=== PATIENT | male | born 1995 | race African-American/Black ===

== ENCOUNTER 2017-01-13 17:25 | Emergency (ER) | payer OTHER ==
[~2017-01-13 17:25] MED LIST: FLEXERIL10 MG PO; MOBIC PO; NO MEDICATIONS; VOLTAREN75 MG PO
== END 2017-01-13 17:59 | disposition home or self-care (01) ==
LOC: SED 17:25
DX: T22.112A Burn of first degree of left forearm, initial encounter (principal); S01.511A Laceration without foreign body of lip, initial encounter; F17.210 Nicotine dependence, cigarettes, uncomplicated; X19.XXXA Contact with other heat and hot substances, initial encounter
CPT/HCPCS: 12011; 90471; 90715; 99283

== ENCOUNTER 2017-01-14 10:15 | Emergency (ER) | payer OTHER ==
--- NOTE | ~2017-01-14 | CR126 ---
[facility] A Service of [facility] & [facility] / [facility] RADIOLOGY TEXT RESULTS PATIENT: YVONNE OBRIEN JR LOCATION: SED : [birth year] UNIT #: [id number] AGE: [address]: Teresa Finn SEX: M ORDER DR: [id number] [address] [address] [id number] MR#: [id number] Acc #: [id number] NAME: YVONNE OBRIEN JR : 1995 SEX: M STUDY DATE/TIME: 01/14/2017 10:12 UNIT: SED ROOM: STUDY DESCRIPTION: CR Foot Complete Min 3 View Lt Attending Physician: Teresa Finn Pa-C Ordering Physician: Teresa Finn Pa-C Primary Care Physician: Isabel Morton M.D. MEDICAL IMAGING REPORT This report is preliminary unless electronic signature is present. EXAM Left foot, 3 views, 01/14/2017, 1012 hours. CLINICAL HISTORY 21-year-old man who dropped a speaker on his left foot yesterday, striking great toe at girlfriend's house. Pain in first toe. COMPARISON None FINDINGS AP, lateral, and oblique views demonstrate overall normal bone density. There is no fracture, dislocation, or radiopaque foreign body. IMPRESSION Negative left foot. Dictated by... Sanjuana Chambers M.D. THIS IS AN ELECTRONICALLY VERIFIED REPORT Sanjuana Chambers M.D. at 01/14/2017 11:56 AM GLADYS/surya TD: 01/14/2017 11:47 JOB #: [id number] MEDICAL IMAGING REPORT Page 1 of 1
== END 2017-01-14 11:26 | disposition home or self-care (01) ==
LOC: SED 10:15
DX: S90.112A Contusion of left great toe without damage to nail, initial encounter (principal); F17.200 Nicotine dependence, unspecified, uncomplicated; W20.8XXA Other cause of strike by thrown, projected or falling object, initial encounter; Y92.009 Unspecified place in unspecified non-institutional (private) residence as the place of occurrence of the external cause
CPT/HCPCS: 73630; 99283

== ENCOUNTER 2017-05-20 23:49 | Emergency (ER) | payer OTHER ==
[~2017-05-20] VITALS: Ht 182.9 cm; Wt 90.7 kg
== END 2017-05-21 00:32 | disposition home or self-care (01) ==
LOC: SED 23:49
DX: L03.012 Cellulitis of left finger (principal); F17.210 Nicotine dependence, cigarettes, uncomplicated; X58.XXXA Exposure to other specified factors, initial encounter
CPT/HCPCS: 96372; 99283; J1885